=== PATIENT | male | born 1955 | race Asian ===

== ENCOUNTER 2018-10-25 07:28 | Emergency (ER) | payer OTHER ==
[~2018-10-25] VITALS: Ht 160 cm; Wt 53.1 kg
[2018-10-25 07:33] VITALS: Ht 160 cm; Wt 53.1 kg
[2018-10-25] MEDS ORDERED: SOD CHLORIDE 0.9% 1,000 ML IV STA (07:53)
[2018-10-25] MEDS ORDERED: FAMOTIDINE 20 MG INJ IV STA (07:53)
[2018-10-25] MEDS ORDERED: ONDANSETRON 4 MG INJ IV STA (07:53)
--- NOTE | 2018-10-25 08:37 | ERD ---
ER Documentation Chief Complaint Chief Complaint ABD PAIN X1 MONTH, NAUSEA HPI This is a 63-year-old male with past medical history of [id number] diabetes mellitus who presents to the emergency department complaining of ab dominal pain for over 2 years. The patient indicates that the pain initially started with a retrosternal burning pain. At the onset of his symptoms 2 years ago he had an upper endoscopy and was diagnosed with peptic ulcer disease. He indicates that he has been taking omeprazole as instructed. However 1 month ago the pain significantly started to worsen again where he states roughly 2 hours after eating he would have severe burning. He was seen by his primary care physician and is scheduled to see a GI physician but was unable to get an appointment until February, 3 months from now. The patient indicates he said no hemoptysis no hematemesis no melanotic stools. He denies any weight loss. He denies any chest pain or pressure that radiates to the neck arm back or jaw. He indicates that every time he attempts to eat or drink liquids he subsequently has an increased acid sensation and difficulty completely swallowing office food. He denies any foreign body sensation. ROS All systems reviewed and are negative except as per history of present illness. Medications Home Meds Active Scripts Ondansetron (Ondansetron Odt) 4 Mg Tab.rapdis, 4 MG PO Q6H PRN for NAUSEA AND/OR VOMITING, #30 TAB Prov:KEVIN HERCULES MD 10/25/18 Sucralfate (Carafate) 1 Gm/10 Ml Oral.susp, 1 GM PO Q6 PRN for HEARTBURN for 30 Days, EA Prov:KEVIN HERCULES MD 10/25/18 Reported Medications Metformin Hcl* (Metformin Hcl*) 850 Mg Tablet, 1 TAB ORAL BID 10/25/18 Omeprazole* (Omeprazole*) 40 Mg Capsule.dr, 1 CAP ORAL DAILY 10/25/18 Allergies Allergies: Coded Allergies: No Known Allergy (Unverified , 10/25/18) PMhx/Soc Medical and Surgical Hx: pt denies Surgical Hx History of Surgery: No Anesthesia Reaction: No Hx Neurological Disorder: No Hx Respiratory Disorders: No Hx Cardiac Disorders: Yes (HIGH CHOLESTEROL) Hx Psychiatric Problems: No Hx Miscellaneous Medical Probl: No Hx Alcohol Use: No Hx Substance Use: No Hx Tobacco Use: No Smoking Status: Former smoker Physical Exam Vitals Vital Signs Date p Pulse Resp B/P (MAP) Pulse Ox O2 O2 Flow FiO2 Time Delivery Rate 10/25/18 97.6 65 17 176/89 98 07:33 (118) Physical Exam Constitutional:Well-developed. Well-nourished. HEENT:Normocephalic. Atraumatic.Pupils were equal round reactive to light. Very dry mucous membranes.No tonsillar exudates. Neck: No nuchal rigidity. No lymphadenopathy. No posterior cervical spine tenderness or step-offs. Respiratory: Not using accessory muscles of respiration.Lungs were clear to auscultation bilaterally. No rhonchi. No rales. No wheezing. Cardiovascular: Regular rate regular rhythm.No murmurs. No rubs were appreciated.S1, S2 normal. Distal pulses are palpable 2+ bilaterally. GI: Abdomen was soft. Left lower quadrant tenderness and reproducible epigastric tenderness. No tenderness in the right upper quadrant over McBurney's point. Non Distended. No pulsatile abdominal masses or bruits. No r ebound. No guarding. Bowel sounds were present and normal. Muscle skeletal: Full range of motion of both the upper and lower extremities bilaterally.Normal muscle tone.No assymetrical calf tenderness or swelling. Skin: No petechia, no purpura. No lesions on the palms or the soles of the feet. No maculopapular rash. NEURO: Patient was alert, awake, orientated x3.No facial droop. Gait observed and normal with no ataxia.Speech had regular rate and rhythm. No focal neurological deficits. Result Diagram: 10/25/18 0810/25/18 0805 Results 24 hrs Laboratory Tests Test 10/25/18 08:05 White Blood Count 5.7 10^3/ul Red Blood Count 5.61 10^6/ul Hemoglobin 14.6 g/dl Hematocrit 46.6 % Mean Corpuscular Volume 83.1 fl Mean Corpuscular Hemoglobin 26.0 pg Mean Corpuscular Hemoglobin Concent 31.3 g/dl Red Cell Distribution Width 14.2 % Platelet Count 262 10^3/UL Mean Platelet Volume 10.1 fl Immature Granulocytes % 0.200 % Neutrophils % 65.9 % Lymphocytes % 25.6 % Monocytes % 5.9 % Eosinophils % 1.9 % Basophils % 0.5 % Nucleated Red Blood Cells % 0.0 /100WBC Immature Granulocytes # 0.010 10^3/ul Neutrophils # 3.8 10^3/ul Lymphocytes # 1.5 10^3/ul Monocytes # 0.3 10^3/ul Eosinophils # 0.1 10^3/ul Basophils # 0.0 10^3/ul Nucleated Red Blood Cells # 0.0 10^3/ul Prothrombin Time 12.5 Sec Prothrombin Time Ratio 1.0 INR International Normalized Ratio 0.92 Activated Partial Thromboplast Time 30.7 Sec Sodium Level 143 mmol/L Potassium Level 3.6 mmol/L Chloride Level 102 mmol/L Carbon Dioxide Level 32 mmol/L Anion Gap 9 Blood Urea Nitrogen 13 mg/dl Creatinine 0.87 mg/dl Est Glomerular Filtrat Rate mL/min > 60 mL/min Glucose Level 130 mg/dl Calcium Level 9.6 mg/dl Total Bilirubin 0.9 mg/dl Direct Bilirubin 0.00 mg/dl Indirect Bilirubin 0.9 mg/dl Aspartate Amino Transf (AST/SGOT) 25 IU/L Alanine Aminotransferase (ALT/SGPT) 26 IU/L Alkaline Phosphatase 51 IU/L Troponin I < 0.012 ng/ml Total Protein 8.5 g/dl Albumin 4.5 g/dl Globulin 4.00 g/dl Albumin/Globulin Ratio 1.12 Amylase Level 172 U/L Lipase 78 U/L Current Medications Medications Dose Sig/Lilly Start Time Status Last (Trade) Ordered Route PRN Stop Time Admin Dose Reason Admin Sodium 1,000 ml @ Q1H STAT 10/25/18 DC 10/25/18 Chloride 1,000 mls/hr IV 07:53 08:18 10/25/18 08:52 Ondansetron 4 mg ONCE STAT 10/25/18 DC 10/25/18 HCl (Zofran IV 07:53 08:18 Inj) 10/25/18 07:55 Famotidine 20 mg ONCE STAT 10/25/18 DC 10/25/18 (Pepcid Iv) IV 07:53 08:18 10/25/18 07:55 IV Flush 10 ml STK-MED 10/25/18 DC 10/25/18 (NS 10 ml) ONCE .ROUTE 08:57 09:21 10/25/18 08:58 Sodium 100 ml @ ud STK-MED 10/25/18 DC 10/25/18 Chloride ONCE .ROUTE 08:57 09:21 10/25/18 08:58 Iohexol 150 ml STK-MED 10/25/18 DC 10/25/18 (Omnipaque ONCE .ROUTE 08:57 09:21 300mg/ ml) 10/25/18 08:58 40 ml ONCE STAT 10/25/18 DC 10/25/18 Miscellaneous PO 09:24 09:35 Medication 10/25/18 09:25 (Gi Cocktail (2)) Belladonna/ 2 tab ONCE STAT 10/25/18 DC 10/25/18 Phenobarbital PO 09:24 09:35 () 10/25/18 09:25 Procedures/MDM The patient presented to the emergency department with epigastric pain. My differential diagnosis included but was not limited to abdominal aortic aneurysm, choledocholithiasis, gallstone ileus, renal colic, pyelonephritis, pancreatitis, peptic ulcer disease, atypical myocardical infarction, mesenteric ischemia, GERD, pulmonary infarction. The patient was placed on a director of cardiac cath lab, continuous pulse oximetry and IV access was established by nursing staff. An EKG was obtained to rule out myocardial ischemia. There was no elevation of LFTs to suggest ductal obstruction, cholangitis, cholecystiitis or hepatitis. Given that the urinalysis did not show bilirubinuria, my suspicion for common duct obstruction or hepatitis was low. 12 Lead EKG tracing ordered and reviewed by myself showed: Normal sinus rhythm of 61 bpm and no arrhythmia. MA interval normal. QRS duration widened at 129 ms with a right bundle branch block No ST segment elevation No ST segment depression. No changes consistent with acute ischemia. I obtained a 1 view chest radiograph and there was no infiltrates pneumothorax or pleural effusions no free air underneath the diaphragm. CT scan of the abdomen on reviewed by myself as well as the radiologist indicated the followin. Mild bilateral hydronephrosis and hydroureter. The urinary bladder is normally distended with a somewhat lobular contour. Clinical correlation for bladder outlet obstruction is recommended. 2. Mildly enlarged heterogeneous appearance of the prostate. Correlation with PSA is recommended. I indicated to the patient that I did not have an exact etiology into his symptoms. However he was now able to tolerate oral intake after he had a GI cocktail which he stated. His symptoms. I did indicate he would benefit again from an outpatient upper endoscopy which she is scheduled for an February. In the meantime I did write a prescription of Zofran as well as sucralfate to take for his symptoms. The patient was discharged home in fair condition. They were instructed to return to the emergency department at any time if there was any worsening of their condition. The patient stated they would follow up with their PCP in the next 24-48 hours to initiate a suitable medication regimen under the care of their PCP as well as to allow their PCP to monitor any drug reactions. The patient was discharged home with prescriptions after they gave informed consent to the new medication. They were also fully informed by myself on the adverse effects and adverse drug interactions in order to provide adequate safeguards to prevent possible adverse reactions to medications. Departure Diagnosis: Primary Impression: Epigastric pain Condition: KEVIN Casas MD Oct 25, 2018 08:37
[2018-10-25] MEDS ORDERED: OMEP40CA6 ORAL (08:49)
[2018-10-25] MEDS ORDERED: METF850T13 ORAL (08:49)
[2018-10-25] MEDS ORDERED: SOD CHLORIDE 0.9% 100 ML ONE (08:57)
[2018-10-25] MEDS ORDERED: IOHEXOL 300MG/ML 150 ML BTL ONE (08:57)
[2018-10-25] MEDS ORDERED: BELLADONNA/PHENOBARBITAL TAB PO STA (09:24)
[2018-10-25] MEDS ORDERED: LIDOCAINE/MYLANTA 40 ML BTL PO STA (09:24)
[2018-10-25] MEDS ORDERED: CARSUSP PO (09:50)
[2018-10-25] MEDS ORDERED: ONDA4TAB14 PO (09:52)
[2018-10-25 10:15] VITALS: BP 135/72; PULSE 62; RESP 16
== END 2018-10-25 10:15 | disposition home or self-care (01) ==
LOC: E/R 07:28
DX: R10.13 Epigastric pain (principal); E11.9 Type 2 diabetes mellitus without complications; R11.0 Nausea; Z79.84 Long term (current) use of oral hypoglycemic drugs; Z87.891 Personal history of nicotine dependence
CPT/HCPCS: 36415; 71045; 74177; 80053; 82150; 83690; 84484; 85025; 85610; 85730; 93005; 96361; 96374; 96375; J2405; J7030; Q9967; Z7502; Z7610

== ENCOUNTER 2018-12-03 08:30 | Day surgery (SDC) | payer OTHER ==
[~2018-12-03] VITALS: Ht 165.1 cm; Wt 51.5 kg
[~2018-12-03 08:30] MED LIST: CARSUSP PO; METF850T13 ORAL; OMEP40CA6 ORAL; ONDA4TAB14 PO
[2018-12-03 10:00] VITALS: Ht 165.1 cm; Wt 51.5 kg
[2018-12-03 10:16] VITALS: BP 124/57; PULSE 63; RESP 16
[2018-12-03] MEDS ORDERED: PROPOFOL 20 ML ONE (10:56)
[2018-12-03] MEDS ORDERED: PROPOFOL 40 ML ONE (10:56)
[2018-12-03] MEDS ORDERED: ESMOLOL 0 ML ONE (13:14)
== END 2018-12-03 14:25 | disposition home or self-care (01) ==
LOC: GIL 08:30
PROVIDERS: ATTEND Internal Medicine Gastroenterology
DX: Z12.11 Encounter for screening for malignant neoplasm of colon (principal); K29.50 Unspecified chronic gastritis without bleeding; E11.9 Type 2 diabetes mellitus without complications; K26.9 Duodenal ulcer, unspecified as acute or chronic, without hemorrhage or perforation; K64.4 Residual hemorrhoidal skin tags; K57.30 Diverticulosis of large intestine without perforation or abscess without bleeding; D12.3 Benign neoplasm of transverse colon
CPT/HCPCS: 82962; 88305; 88312